=== PATIENT | female | born 1985 | race Caucasian/White ===

== ENCOUNTER 2020-06-30 15:39 | Emergency (ER) | payer BC, OTHER ==
[~2020-06-30] VITALS: Ht 162.6 cm; Wt 77.1 kg
[2020-06-30 15:52] LABS: *BILIRUBIN,URIN NEGATIVE (NEGATIVE); *CLARITY,URINE CLEAR (CLEAR); *COLOR,URINE YELLOW (YELLOW); *KETONES,URINE NEGATIVE (NEGATIVE); *UROBILINOGEN,URINE 0.2 E.U./dl (NORMAL); LEUKOCYTE ESTERASE ,URINE NEGATIVE (NEGATIVE); NITRITE, URINE NEGATIVE (NEGATIVE); PH,URINE 5.5 (5.0-8.0); UGLUCOSE NEGATIVE (NEGATIVE)
[2020-06-30 15:53] LABS: *URINE HCG, QUAL NEGATIVE (NEGATIVE)
[2020-06-30 15:54] LABS: *BLOOD, URINE TRACE (NEGATIVE)
[2020-06-30] MEDS ORDERED: MAG HYDROX/AL HYDROX/SIMETH 30 ML LIQUID UDC PO ONE (16:00)
[2020-06-30] MEDS ORDERED: PANTOPRAZOLE SODIUM 40 MG VIAL IV ONE (16:00)
[2020-06-30] MEDS ORDERED: MORPHINE SULFATE 2 MG/1 ML DISP.SYRIN IV ONE (16:00)
[2020-06-30] MEDS ORDERED: LIDOCAINE VISCUS 2% 15 ML UDC MM ONE (16:00)
[2020-06-30] MEDS ORDERED: IV NORMAL SALINE 1000 ML BAG IV ONE (16:00)
[2020-06-30] MEDS ORDERED: ONDANSETRON 4 MG/2 ML VIAL IV ONE (16:00)
[2020-06-30] MEDS ORDERED: MORPHINE SULFATE 2 MG/1 ML DISP.SYRIN ONE (16:03)
[2020-06-30] MEDS ORDERED: PANTOPRAZOLE SODIUM 40 MG VIAL ONE (16:03)
[2020-06-30] MEDS ORDERED: LIDOCAINE VISCUS 2% 15 ML UDC ONE (16:03)
[2020-06-30] MEDS ORDERED: ONDANSETRON 4 MG/2 ML VIAL ONE (16:03)
[2020-06-30] MEDS ORDERED: MAG HYDROX/AL HYDROX/SIMETH 30 ML LIQUID UDC ONE (16:03)
[2020-06-30 16:06] LABS: BASOPHILS % (AUTO) 0.5 % (0.0-2.0); EOSINOPHILS # (AUTO) 0.1 K/uL (0.0-0.7); EOSINOPHILS % (AUTO) 1.1 % (0.0-7.0); HEMATOCRIT 38.7 % (31.2-41.9); LYMPHOCYTES # (AUTO) 2.5 K/uL (20.0-40.0); LYMPHOCYTES % (AUTO) 33.8 % (20.5-51.5); MEAN CORPUSCULAR HEMOGLOBIN 29.3 uug (24.7-32.8); MEAN CORPUSCULAR HGB CONC 34 g/dL (32.3-35.6); MEAN CORPUSCULAR VOLUME 87.5 fL (75.5-95.3); MONOCYTES # (AUTO) 0.3 K/uL (2.0-10.0); MONOCYTES % (AUTO) 4.6 % (0.0-11.0); NEUTROPHILS # (AUTO) 4.4 K/uL (1.8-8.9); PLATELET COUNT (AUTO) 189 K/uL (179-408); RED BLOOD CELL COUNT(AUTO) 4.42 MIL/uL (3.63-4.92); WHITE BLOOD COUNT (AUTO) 7.4 K/uL (3.8-11.8)
[2020-06-30 16:10] LABS: CREATININE 0.7 mg/dL (0.6-1.3); POTASSIUM 3.6 mmol/L (3.5-5.1)
[2020-06-30 16:16] LABS: BILIRUBIN,DIRECT 0.1 mg/dL (0.0-0.2); BILIRUBIN,TOTAL 0.4 mg/dL (0.2-1.0); TOTAL PROTEIN, SERUM 7.6 g/dL (6.4-8.2)
[2020-06-30 17:17] LABS: BACTERIA,URINE NONE SEEN /HPF (NONE SEEN); RBC,URINE 0-3 /HPF (0-3); SQUAMOUS EPITHELIAL CELL,UR FEW /HPF (NONE SEEN); WBC,URINE NONE SEEN /HPF (0-3)
--- NOTE | 2020-06-30 17:21 | NUR ---
Patient discharged to home in stable condition. Written and verbal after care instructions given. Patient verbalizes understanding of instructions. Stressed follow up or return to ER for worsening s/s.pt walks i nsteady gait. pt family member will come and hop picker the pt. Addendum: 06/30/20 at 1723 by [email or web address] pt acknowledges that the d/c bp is her base line.
[2020-06-30 17:22] VITALS: BP 98/56
== END 2020-06-30 17:23 | disposition home or self-care (01) ==
LOC: ER 15:39
DX: R10.11 Right upper quadrant pain (principal); M54.40 Lumbago with sciatica, unspecified side
CPT/HCPCS: 36415; 71045; 76705; 80048; 80076; 81001; 83690; 84703; 85025; 85379; 96361; 96374; 96375; 99284; C9113; J2270; J2405; A4663